=== PATIENT | female | born 1945 | race Hispanic/Latino ===

== ENCOUNTER → 2018-02-09 | Outpatient (CLI) | payer OTHER | END | disposition home or self-care (01) | LOC: RAH 10:38 | PROVIDERS: ATTEND Family Medicine | DX: Z12.31 Encounter for screening mammogram for malignant neoplasm of breast (principal) | CPT/HCPCS: 77067 ==

== ENCOUNTER → 2018-11-22 | Outpatient (CLI) | payer OTHER ==
[~2018-11-22] MED LIST: REGADENOSON 0.4 MG/5 ML PF SYG IVP SCH
== END | disposition home or self-care (01) ==
LOC: SHCH 08:08
PROVIDERS: ATTEND Internal Medicine Cardiovascular Disease
DX: I99.8 Other disorder of circulatory system (principal); I25.10 Atherosclerotic heart disease of native coronary artery without angina pectoris
CPT/HCPCS: 78452; 93017; 96374; A9500 ×2

== ENCOUNTER → 2019-03-06 | Outpatient (CLI) | payer OTHER | END | disposition home or self-care (01) | LOC: RAH 08:07 | PROVIDERS: ATTEND Family Medicine | DX: Z12.31 Encounter for screening mammogram for malignant neoplasm of breast (principal) | CPT/HCPCS: 77067 ==

== ENCOUNTER 2019-12-23 00:54 | Inpatient (IN) | payer OTHER ==
[2019-12-23] VITALS (22 sets, daily range): BP systolic 85–168; BP diastolic 35–81
[2019-12-23 01:10] LABS: BASOPHILS % (AUTO) 1.2 % (0.0-5.0); EOSINOPHILS % (AUTO) 6.3 % (0.0-8.0); HEMATOCRIT 37.1 % (36-48); LYMPHOCYTES % (AUTO) 34.1 % (21.0-51.0); MEAN CORPUSCULAR HEMOGLOBIN 26.4 pg (27.0-33.0); MEAN CORPUSCULAR HGB CONC 31.3 g/dL (32.0-36.0); MEAN CORPUSCULAR VOLUME 84.5 fL (79-99); NEUTROPHILS % (AUTO) 51.4 % (40.0-77.0); PLATELET COUNT (AUTO) 170 K/uL (130-400); RED BLOOD CELL COUNT(AUTO) 4.39 MIL/uL (4.00-5.50); RED CELL DISTRIBUTION WIDTH 14.1 % (11.0-15.5); WHITE BLOOD COUNT (AUTO) 4.3 K/uL (4.8-10.8)
[2019-12-23] MEDS ORDERED: NITROGLYCERIN 0.4 MG SL TAB SL ONE (01:17)
[2019-12-23 01:25] LABS: POTASSIUM 3.7 mmol/L (3.5-5.1)
[2019-12-23 01:26] LABS: INR 0.93 (0.85-1.15); PARTIAL THROMBOPLASTIN TIME 26.9 SEC (26.3-35.5); PROTHROMBIN TIME 10.1 SEC (9.6-11.6)
[2019-12-23 01:29] LABS: BILIRUBIN,TOTAL 0.3 mg/dL (0.2-1.0)
[2019-12-23] MEDS ORDERED: NITROGLYCERIN 1GM/1 INCH PACKET TD ONE (02:34)
[2019-12-23] MEDS ORDERED: IOHEXOL 350 MG/ML 100ML INFUS..BTL IV ONE ×3 (02:42→13:02)
[2019-12-23 02:45] LABS: APPEARANCE,URINE Clear (CLEAR); BILIRUBIN,URINE Negative (NEGATIVE); COLOR,URINE Yellow (YELLOW); GLUCOSE, URINE (UA) Negative (NEGATIVE); KETONES,URINE Negative (NEGATIVE); LEUKOCYTE ESTERASE ,URINE Negative (NEGATIVE); NITRATE,URINE Negative (NEGATIVE); OCCULT BLOOD,URINE Negative (NEGATIVE); PH,URINE 6.5 (5.0-8.0); PROTEIN,URINE Trace mg/dL (NEGATIVE); UROBILINOGEN,URINE 0.2 mg/dL (0.2-1.0)
[2019-12-23] MEDS ORDERED: HYDRALAZINE HCL 20 MG/ML VIAL ONE ×2 (03:42→10:54)
[2019-12-23] MEDS ORDERED: ASPIRIN 325 MG TABLET ONE (03:43)
[2019-12-23] MEDS ORDERED: NITROGLYCERIN 0.4 MG SL TAB SL PRN (04:45)
[2019-12-23 08:08] LABS: TROPONIN I 1.58 ng/mL (0.00-0.06)
[2019-12-23] MEDS ORDERED: METO25TA3 PO (08:16)
[2019-12-23] MEDS ORDERED: LOSA100T58 PO (08:16)
[2019-12-23] MEDS ORDERED: ROSU40TA21 PO (08:16)
[2019-12-23] MEDS ORDERED: ASPI-1197 PO (08:16)
[2019-12-23] MEDS ORDERED: ACETAMINOPHEN 325 MG TAB PO PRN ×2 (08:30)
[2019-12-23] MEDS ORDERED: DiphenhydrAMINE HCL 50 MG/ML VIAL IV PRN (08:30)
[2019-12-23] MEDS ORDERED: LACTULOSE 20 GM/30 ML UDCUP PO PRN (08:30)
[2019-12-23] MEDS ORDERED: POTASSIUM CHLORIDE 10% ELIXIR 20 MEQ/15 ML UDCUP PO PRN (08:30)
[2019-12-23] MEDS ORDERED: DEXTROSE 50%-WATER 50 ML DISP.SYRIN IV PRN ×2 (08:30→11:30)
[2019-12-23] MEDS ORDERED: GLUCAGON 1MG KIT 1 MG ML IM PRN ×2 (08:30→11:30)
[2019-12-23] MEDS ORDERED: MAG HYDROX/AL HYDROX/SIMETH ES 30 ML SUSP UDCUP PO PRN (08:30)
[2019-12-23] MEDS ORDERED: HYDRALAZINE HCL 20 MG/ML VIAL IV PRN (08:30)
[2019-12-23] MEDS ORDERED: GUAIFENESIN-DM 200/20 MG 10 ML PO PRN (08:30)
[2019-12-23] MEDS ORDERED: POTASSIUM CHLORIDE 20 MEQ ERTAB PO PRN (08:30)
[2019-12-23] MEDS ORDERED: LIDOCAINE HCL-MPF 1% 2ML VIAL IV PRN (08:30)
[2019-12-23] MEDS ORDERED: POTASSIUM CHLORIDE 20MEQ/100ML 100 ML IV PRN (08:30)
[2019-12-23] MEDS ORDERED: ASPIRIN 325 MG TABLET PO SCH (09:00)
[2019-12-23] MEDS ORDERED: FAMOTIDINE/PF 20 MG/2 ML VIAL IV SCH (09:00)
[2019-12-23] MEDS ORDERED: HEPARIN SODIUM 1000UNIT/ML 10ML VIAL ONE ×2 (10:02→13:02)
[2019-12-23] MEDS ORDERED: IOHEXOL-350 50ML VIAL IV ONE (10:02)
[2019-12-23] MEDS ORDERED: MIDAZOLAM HCL 1 MG/ML 2ML VIAL ONE (10:03)
[2019-12-23] MEDS ORDERED: LIDOCAINE HCL 2% 20ML ONE ×2 (10:03→13:03)
[2019-12-23] MEDS ORDERED: NITROGLYCERIN 2 MG/VIAL VIAL IV ONE ×2 (10:09→13:02)
[2019-12-23 11:11] LABS: TROPONIN I 2.59 ng/mL (0.00-0.06)
[2019-12-23] MEDS ORDERED: ONDANSETRON HCL 4 MG/2 ML VIAL ONE (11:24)
--- NOTE | 2019-12-23 11:55 | NUR ---
post received pt from canvas shop laborer, s/p [facility], pt awake and alert, pt c/o nausea and vomiting, states feels sick , seepost cath assessment, pt intructed to keep bedrest for 4 hours , right groin dressing dry and intact, pts sister at bedside.
[2019-12-23] MEDS ORDERED: MORPHINE SULFATE 2 MG/ML 1ML SYG ONE ×2 (12:16→13:54)
[2019-12-23] MEDS: ONDANSETRON HCL 4 MG/2 ML VIAL IVP SCH ×2 (12:23→22:13)
--- NOTE | 2019-12-23 12:24 | NUR ---
pain pt medicated with morphine/zofran for c/o upper back pain and c/o nausea and vomiting. will continue to monitor
[2019-12-23] MEDS ORDERED: MORPHINE SULFATE 2 MG/ML 1ML SYG IVP SCH (12:30)
[2019-12-23] MEDS ORDERED: ONDANSETRON HCL 4 MG/2 ML VIAL IVP SCH (12:30)
--- NOTE | 2019-12-23 12:45 | NUR ---
chest pain dr. quinteros informed that patient has been c/o chest pain radiating to left arm. he ordered ekg stat and further orders. will continue to monitor
--- NOTE | 2019-12-23 12:52 | NUR ---
ekg abnormal ekg reported to dr. quinteros he reviewed the ekg and will take patient back to tree tapping laborer for repeat heart cath. pts sister at bedside. tree tapping laborer staff aware
--- NOTE | 2019-12-23 13:10 | NUR ---
EKG PT TAKEN BACK TO WATCHMAKER APPRENTICE FOR LHC VIA BED, BY SARAH GIBSON RN
[2019-12-23] MEDS ORDERED: CLOPIDOGREL BISULFATE 300 MG TAB ONE (13:45)
[2019-12-23] MEDS ORDERED: HEPARIN 25000 UNITS/250 ML D5W 250 ML IV ONE (13:49)
[2019-12-23] MEDS ORDERED: ACETAMINOPHEN-CODEINE 300/30MG TAB PO PRN (14:00)
[2019-12-23] MEDS ORDERED: HEPARIN 25000 UNITS/250 ML D5W 250 ML IV SCH (14:00)
[2019-12-23] MEDS ORDERED: ONDANSETRON HCL 4 MG/2 ML VIAL IVP PRN ×2 (14:00)
[2019-12-23] MEDS ORDERED: TEMAZEPAM 30 MG CAP PO PRN (14:00)
[2019-12-23] MEDS ORDERED: MORPHINE SULFATE 5 MG/ML VIAL IVP PRN ×2 (14:30→15:00)
[2019-12-23 15:06] LABS: BASOPHILS % (AUTO) 0.2 % (0.0-5.0); EOSINOPHILS % (AUTO) 0.4 % (0.0-8.0); HEMATOCRIT 36.5 % (36-48); LYMPHOCYTES % (AUTO) 7.6 % (21.0-51.0); MEAN CORPUSCULAR HEMOGLOBIN 26.2 pg (27.0-33.0); MEAN CORPUSCULAR HGB CONC 31.5 g/dL (32.0-36.0); MEAN CORPUSCULAR VOLUME 83.1 fL (79-99); MONOCYTES % (AUTO) 2.8 % (3.0-13.0); NEUTROPHILS % (AUTO) 88.7 % (40.0-77.0); PLATELET COUNT (AUTO) 163 K/uL (130-400); RED BLOOD CELL COUNT(AUTO) 4.39 MIL/uL (4.00-5.50); RED CELL DISTRIBUTION WIDTH 14.2 % (11.0-15.5)
[2019-12-23 16:41] LABS: TROPONIN I 54.93 ng/mL (0.00-0.06)
--- NOTE | 2019-12-23 17:26 | NUR ---
Patient Received at this time from cathlab. Both groin sites assessed, soft and no hematoma. Patient made aware she is bedrest
[2019-12-23] MEDS: NITROGLYCERIN 1GM/1 INCH PACKET TD SCH ×2 (17:30→23:20)
--- NOTE | 2019-12-23 17:37 | NUR ---
Dr Arriaga notified of elevated CK and Troponin at this time
--- NOTE | 2019-12-23 20:28 | NUR ---
Notified Dr. Lee of rising hematoma forming at this time. Site is still soft to touch but looks raised. orders given, read back and followed
[2019-12-23] MEDS: INSULIN HUMULIN R 100 UNIT/ML 3ML SQ SCH (21:00)
[2019-12-23 21:58] LABS: TROPONIN I 253.5 ng/mL (0.00-0.06)
[2019-12-23] MEDS: ATORVASTATIN CALCIUM 20 MG TABLET PO SCH (22:12)
[2019-12-23] MEDS: METOPROLOL TARTRATE 25 MG TAB PO SCH (22:12)
[2019-12-23 23:27] LABS: TROPONIN I 270.43 ng/mL (0.00-0.06)
[2019-12-24] VITALS (18 sets, daily range): BP systolic 111–154; BP diastolic 49–78
[2019-12-24 03:41] LABS: HEMATOCRIT 33.7 % (36-48); MEAN CORPUSCULAR HEMOGLOBIN 26.6 pg (27.0-33.0); MEAN CORPUSCULAR HGB CONC 31.8 g/dL (32.0-36.0); MEAN CORPUSCULAR VOLUME 83.8 fL (79-99); PLATELET COUNT (AUTO) 171 K/uL (130-400); RED BLOOD CELL COUNT(AUTO) 4.02 MIL/uL (4.00-5.50); RED CELL DISTRIBUTION WIDTH 14.4 % (11.0-15.5); WHITE BLOOD COUNT (AUTO) 8.1 K/uL (4.8-10.8)
[2019-12-24 03:58] LABS: CREATININE 0.9 mg/dL (0.5-1.5); POTASSIUM 3.9 mmol/L (3.5-5.1)
[2019-12-24] MEDS: NITROGLYCERIN 1GM/1 INCH PACKET TD SCH ×4 (05:22→20:20)
[2019-12-24] MEDS: ONDANSETRON HCL 4 MG/2 ML VIAL IVP SCH ×3 (05:28→22:00)
[2019-12-24] MEDS: INSULIN HUMULIN R 100 UNIT/ML 3ML SQ SCH ×4 (06:50→20:46)
[2019-12-24] MEDS: METOPROLOL TARTRATE 25 MG TAB PO SCH ×2 (08:16→20:16)
[2019-12-24] MEDS: PANTOPRAZOLE SODIUM 40 MG TABLET.DR PO SCH (08:16)
[2019-12-24] MEDS: CLOPIDOGREL BISULFATE 75 MG TAB PO SCH (08:16)
[2019-12-24] MEDS: ASPIRIN 81MG TAB.CHEW PO SCH (08:17)
[2019-12-24] MEDS: ENOXAPARIN SODIUM 40 MG/0.4 ML SYRINGE SQ SCH (08:20)
--- NOTE | 2019-12-24 08:22 | NUR ---
Lovenox held because of left hematoma/healing.
--- NOTE | 2019-12-24 13:15 | NUR ---
patient transferred to room 228, report given to Ilya JIMENEZ. Patient transferred via wheelchair. patient states no pain or distress
--- NOTE | 2019-12-24 13:30 | NUR ---
TRANSFER FROM ICU RECEIVED PT FROM JOSE JIMENEZ, UP IN CHAIR, A&OX3, CALM COOPERATIVE AND DOES NOT APPEAR TO BE IN ANY DISTRESS. PT RESTING COMFORTABLY, CALL LIGHT WITHIN REACH, FAMILY AT BEDSIDE.
--- NOTE | 2019-12-24 13:35 | NUR ---
[id number] patient signed IM Letter, I faxed IM Letter to [phone] and placed in chart under consent tab
[2019-12-24] MEDS: ATORVASTATIN CALCIUM 20 MG TABLET PO SCH (20:16)
[2019-12-25 03:42] VITALS: BP 141/74
[2019-12-25] MEDS: ONDANSETRON HCL 4 MG/2 ML VIAL IVP SCH ×3 (05:46→22:00)
[2019-12-25] MEDS: INSULIN HUMULIN R 100 UNIT/ML 3ML SQ SCH ×4 (05:57→20:36)
[2019-12-25] MEDS: NITROGLYCERIN 1GM/1 INCH PACKET TD SCH (05:57)
[2019-12-25 07:24] VITALS: BP 134/64
--- NOTE | 2019-12-25 07:45 | NUR ---
PT IS RESTING AND SISTER AT BEDSIDE. NO COMPLAINTS OFFERED.
[2019-12-25] MEDS: CLOPIDOGREL BISULFATE 75 MG TAB PO SCH (08:38)
[2019-12-25] MEDS: LOSARTAN 50 MG TABLET PO SCH (08:39)
[2019-12-25] MEDS: PANTOPRAZOLE SODIUM 40 MG TABLET.DR PO SCH (08:40)
[2019-12-25] MEDS: ASPIRIN 81MG TAB.CHEW PO SCH (08:40)
[2019-12-25] MEDS: METOPROLOL TARTRATE 25 MG TAB PO SCH ×2 (08:42→20:42)
[2019-12-25] MEDS: ENOXAPARIN SODIUM 40 MG/0.4 ML SYRINGE SQ SCH (08:42)
[2019-12-25 11:46] VITALS: BP_SYST 11; BP_SYST 111; BP_DIAS 62
[2019-12-25 15:30] VITALS: BP 112/64
[2019-12-25 19:23] VITALS: BP 131/66
[2019-12-25] MEDS: ATORVASTATIN CALCIUM 20 MG TABLET PO SCH (20:42)
[2019-12-25 23:22] VITALS: BP 131/72
[2019-12-26 03:09] VITALS: BP 144/85
[2019-12-26 04:51] LABS: HEMATOCRIT 32.5 % (36-48); MEAN CORPUSCULAR HEMOGLOBIN 26.5 pg (27.0-33.0); MEAN CORPUSCULAR VOLUME 82.7 fL (79-99); PLATELET COUNT (AUTO) 148 K/uL (130-400); RED BLOOD CELL COUNT(AUTO) 3.93 MIL/uL (4.00-5.50); RED CELL DISTRIBUTION WIDTH 14.3 % (11.0-15.5)
[2019-12-26 05:21] LABS: ALBUMIN 3.2 g/dL (3.5-5.0); BILIRUBIN,TOTAL 0.6 mg/dL (0.2-1.0); CREATININE 0.8 mg/dL (0.5-1.5); POTASSIUM 3.5 mmol/L (3.5-5.1); TOTAL PROTEIN, SERUM 6.9 g/dL (6.0-8.3)
[2019-12-26] MEDS: ONDANSETRON HCL 4 MG/2 ML VIAL IVP SCH (06:00)
[2019-12-26] MEDS: INSULIN HUMULIN R 100 UNIT/ML 3ML SQ SCH ×2 (06:11→11:30)
[2019-12-26] MEDS ORDERED: CLOP75TA14 PO (07:47)
[2019-12-26] MEDS ORDERED: METO-391 PO (07:47)
[2019-12-26 07:49] VITALS: BP 143/75
--- NOTE | 2019-12-26 08:15 | NUR ---
AM ASSESSMENT PT SITTING IN CARDIAC RECLINER, WATCHING TV. VISITOR @ BEDSIDE. A/O X 3. NO SOB. NO DISTRESS NOTED. DENIES CHEST PAIN OR DISCOMFORT. DENIES PALPITATIONS. TELE:SR. BILATERAL GROINS DSG DRY & INTACT. PUNCTURES SITES SOFT, NON-TENDER. DSTAT TO RT GROIN. NO BLEEDING, NO HEMATOMA BILATERALLY. (+) STRONG PEDAL PULES BILATERALLY. BLE PINK & WARM TO TOUCH. DENIES N/V AND/OR DIARRHEA. UP W/ASSISTANCE. INSTRUCTED TO CALL FOR ASSISTANCE. CALL LOBO W/IN REACH.
[2019-12-26] MEDS: METOPROLOL TARTRATE 25 MG TAB PO SCH (09:55)
[2019-12-26] MEDS: ENOXAPARIN SODIUM 40 MG/0.4 ML SYRINGE SQ SCH (10:03)
[2019-12-26] MEDS: PANTOPRAZOLE SODIUM 40 MG TABLET.DR PO SCH (10:03)
[2019-12-26] MEDS: CLOPIDOGREL BISULFATE 75 MG TAB PO SCH (10:04)
[2019-12-26] MEDS: LOSARTAN 50 MG TABLET PO SCH (10:05)
[2019-12-26] MEDS: ASPIRIN 81MG TAB.CHEW PO SCH (10:06)
[2019-12-26 11:42] VITALS: BP 116/62
--- NOTE | 2019-12-26 13:37 | NUR ---
Medical Power of Produce Department Supervisor SW met with patient and sister and assisted in completing Medical Power of Produce Department Supervisor. Patient appointed her sister, Robyn Phillips, as Health Care Agent. First Alternate is sister, Naomi Thomas, . Second Alternate is niece, Johnna Phillips, . Copy placed in chart. Original and two copies given to patient. Patient's nurse made aware.
--- NOTE | 2019-12-26 13:45 | NUR ---
DISCHARGE VERBAL & WRITTEN DISCHARGE INSTRUCTIONS REVIEWED & GIVEN TO PT & FAMILY. QUESTIONS ENCOURAGED & CLARIFIED. PROPER CARE & ACTIVITY AFTER LHC W/STENT REVIEWED. NEW PRESCRIBED & DC'D MEDICATIONS REVIEWED. PT INFORMED PRESCRIPTION TRANSMITTED TO PHARMACY IN FILE. CABG INFORMATION GIVEN TO PT. PLAN FOR DR SARAH TO PERFORM CABG IN FUTURE. DSG TO BILATERAL GROIN REMOVED. STERI STRIPS APPLIED. TELE THA REMOVED. IV DC'D. PT & FAMILY TO GATHER PERSONAL BELONGINGS. WILL NOTIFY STAFF WHEN READY TO BE TAKEN TO PRIVATE VEHICLE.
--- NOTE | 2019-12-26 14:15 | NUR ---
DISCHARGE PT TAKEN TO PRIVATE VEHICLE VIA WC BY Ricardo FREED PCP. NO DISTRESS NOTED.
== END 2019-12-26 14:15 | disposition home or self-care (01) | DRG 246 ==
LOC: EDH 00:54 → EDHIP 03:50 → OBSVTOIN 03:50 → 2BH 16:09 → 2DH 12-24 11:29
PROVIDERS: ADMIT Internal Medicine Critical Care Medicine; ATTEND Internal Medicine Critical Care Medicine
PROC: 027034Z Dilation of Coronary Artery, One Artery with Drug-eluting Intraluminal Device, Percutaneous Approach (ICD-10-PCS; principal; 2019-12-23)
PROC: 4A023N7 Measurement of Cardiac Sampling and Pressure, Left Heart, Percutaneous Approach (ICD-10-PCS; 2019-12-23)
PROC: B2111ZZ Fluoroscopy of Multiple Coronary Arteries using Low Osmolar Contrast (ICD-10-PCS; 2019-12-23)
DX: I21.09 ST elevation (STEMI) myocardial infarction involving other coronary artery of anterior wall (principal); I50.41 Acute combined systolic (congestive) and diastolic (congestive) heart failure; I25.10 Atherosclerotic heart disease of native coronary artery without angina pectoris; I11.0 Hypertensive heart disease with heart failure; E78.5 Hyperlipidemia, unspecified; Z82.49 Family history of ischemic heart disease and other diseases of the circulatory system; Z79.82 Long term (current) use of aspirin; I25.82 Chronic total occlusion of coronary artery
CPT/HCPCS: 36415; 71045; 71275; 80048; 80053; 80061; 81003; 82550; 82948; 83874; 84484; 85025; 85027; 85347; 85610; 85730; 93005; 93306; 93356; 93454; 93458; 99156; 99157; 99291; C1760; C1769; C1887; C1894; C9600; G0378; J0360; J1644; J1650; J2250; J2405; J3490; Q9967

== ENCOUNTER 2020-01-17 10:00 | Inpatient (IN) | payer OTHER ==
[~2020-01-17] VITALS: Ht 167.6 cm; Wt 73.7 kg
[~2020-01-17 10:00] MED LIST changes: +ASPI-1197 PO; +CLOP75TA14 PO; +METO-391 PO; -REGADENOSON 0.4 MG/5 ML PF SYG IVP SCH; +ROSU40TA21 PO
[2020-01-31 12:51] VITALS: BP 186/97
[2020-02-03] VITALS (19 sets, daily range): BP systolic 18–188; BP diastolic 48–116
[2020-02-03] MEDS: CEFUROXIME SODIUM 1.5 GM VIAL IVP SCH ×2 (06:00→08:00)
[2020-02-03] MEDS ORDERED: EPINEPHRINE 10 MG in SODIUM CHLORIDE 0.9% 240 ML IV PRN (06:00)
[2020-02-03] MEDS ORDERED: AMINOCAPROIC ACID 15,000 MG in SODIUM CHLORIDE 0.9% 500ML 420 ML IV PRN (06:00)
[2020-02-03] MEDS ORDERED: NOREPINEPHRINE BITARTRATE 8 MG in DEXTROSE 5%-WATER 250 ML IV PRN (06:00)
[2020-02-03] MEDS ORDERED: PAPAVERINE HCL 30 MG/ML 2ML VIAL ONE (06:42)
[2020-02-03] MEDS ORDERED: CEFAZOLIN SODIUM 1 GM VIAL ONE (06:42)
[2020-02-03 06:52] LABS: BASOPHILS % (AUTO) 0.8 % (0.0-5.0); EOSINOPHILS % (AUTO) 3.5 % (0.0-8.0); HEMATOCRIT 34.4 % (36-48); LYMPHOCYTES % (AUTO) 14.7 % (21.0-51.0); MEAN CORPUSCULAR HEMOGLOBIN 26.2 pg (27.0-33.0); MEAN CORPUSCULAR HGB CONC 31.7 g/dL (32.0-36.0); MEAN CORPUSCULAR VOLUME 82.7 fL (79-99); NEUTROPHILS % (AUTO) 74.8 % (40.0-77.0); PLATELET COUNT (AUTO) 196 K/uL (130-400); RED BLOOD CELL COUNT(AUTO) 4.16 MIL/uL (4.00-5.50); RED CELL DISTRIBUTION WIDTH 14.6 % (11.0-15.5)
[2020-02-03] MEDS ORDERED: SODIUM CHLORIDE 0.9% 1000ML 1,000 ML IV ONE (06:57)
[2020-02-03] MEDS ORDERED: NITROGLYCERIN 50 MG/D5% WATER 1 BOT ONE (07:09)
--- NOTE | 2020-02-03 07:10 | NUR ---
POTENTIAL FOR INFECTION: CLIPPED ORDERED PER ZACH JEAN, FOLLOWED BY WIPING WITH ELIAS: 2: CHLORHEXIDINE GLUCONATE CLOTH PATIENTS PRE-OP SKIN PREP.
[2020-02-03 07:13] LABS: ALBUMIN 3.9 g/dL (3.5-5.0); BILIRUBIN,TOTAL 0.7 mg/dL (0.2-1.0); CREATININE 0.8 mg/dL (0.5-1.5); POTASSIUM 3.6 mmol/L (3.5-5.1); TOTAL PROTEIN, SERUM 7.5 g/dL (6.0-8.3)
[2020-02-03 07:25] LABS: INR 1.03 (0.85-1.15); PARTIAL THROMBOPLASTIN TIME 28.2 SEC (26.3-35.5); PROTHROMBIN TIME 11.1 SEC (9.6-11.6)
--- NOTE | 2020-02-03 07:28 | NUR ---
CIRCULATORY: DR. ALMAZAN NOTIFIED OF BP READINGS 184/116 AND 188/101, NO ORDERS GIVEN AT PRESENT TIME.
[2020-02-03] MEDS ORDERED: FENTANYL CITRATE PF 50 MCG/1 ML 20ML VIAL IJ ONE (07:36)
[2020-02-03] MEDS ORDERED: LIDOCAINE PF 2% 5ML ABBOJECT ONE (07:36)
[2020-02-03] MEDS ORDERED: PROTAMINE SULFATE 10 MG/ML 25ML VIAL IV ONE (07:36)
[2020-02-03] MEDS ORDERED: EPINEPHRINE 1 MG/ML AMPULE ONE (07:36)
[2020-02-03] MEDS ORDERED: ESMOLOL HCL 10 MG/ML 10 ML VIAL ONE (07:36)
[2020-02-03] MEDS ORDERED: HEPARIN SODIUM 1000UNIT/ML 10ML VIAL ONE (07:36)
[2020-02-03] MEDS ORDERED: AMINOCAPROIC ACID 250 MG/ML 20 ML VIAL IV ONE (07:36)
[2020-02-03] MEDS ORDERED: NOREPINEPHRINE BITARTRATE 1 MG/1 ML ML IV ONE (07:36)
[2020-02-03] MEDS ORDERED: SODIUM BICARB 50MEQ 50ML VIAL ONE ×4 (07:36→10:36)
[2020-02-03] MEDS ORDERED: ROCURONIUM 10MG/1ML SYR 10 MG/ML ML ONE (07:37)
[2020-02-03] MEDS ORDERED: MIDAZOLAM HCL 1 MG/ML 2ML VIAL ONE ×2 (07:37→07:39)
[2020-02-03] MEDS ORDERED: PROPOFOL 10 MG/ML 20ML VIAL IV ONE (07:37)
[2020-02-03] MEDS ORDERED: KETAMINE 50MG/ML SYRINGE 50 MG/ML DISP.SYRIN IV ONE (07:39)
[2020-02-03 08:02] LABS: PLATELET COUNT (AUTO) 196 K/uL (130-400); PLATELET FUNCTION ANALYSIS EPI 133 SEC (55-192)
[2020-02-03 08:03] LABS: HEMATOCRIT 34.4 % (36-48)
[2020-02-03 08:45] LABS: ABG BASE EXCESS -5.4 mmol/L (-2.0-3.0); ABG HCO3 20.6 mmol/L (21.0-28.0); ABG OXYGEN SATURATION 98.9 % (95.0-99.0); ABG PCO2 43 mmHg (32-45)
[2020-02-03 09:18] LABS: ABG BASE EXCESS -1.3 mmol/L (-2.0-3.0); ABG HCO3 23.2 mmol/L (21.0-28.0); ABG OXYGEN SATURATION 99.1 % (95.0-99.0); ABG PCO2 38 mmHg (32-45)
[2020-02-03] MEDS ORDERED: SODIUM CHLORIDE 0.9% 500ML 500 ML IV SCH (09:33)
[2020-02-03] MEDS ORDERED: NOREPINEPHRINE 4MG/NS 250ML 250 ML IV PRN (09:45)
[2020-02-03] MEDS ORDERED: POTASSIUM PHOS 15 mMOL+NS250ML 250 ML IV PRN (09:45)
[2020-02-03] MEDS ORDERED: ALBUMIN (HUMAN) 5% 250 ML IV PRN (09:45)
[2020-02-03] MEDS ORDERED: SODIUM CHLORIDE 0.9% 1000ML 1,000 ML IV SCH (09:45)
[2020-02-03] MEDS ORDERED: GLUCAGON 1MG KIT 1 MG ML IM PRN (09:45)
[2020-02-03] MEDS ORDERED: CALCIUM GLUCONATE 1 GM in SODIUM CHLORIDE 0.9% 50 ML IV PRN (09:45)
[2020-02-03] MEDS ORDERED: NITROGLYCERIN 50 MG/D5% WATER 250 BOT IV SCH (09:45)
[2020-02-03] MEDS ORDERED: AMINOCAPROIC ACID 15,000 MG in SODIUM CHLORIDE 0.9% 250 ML IV SCH (09:45)
[2020-02-03] MEDS ORDERED: MORPHINE SULFATE 4 MG/1ML SYG IV PRN (09:45)
[2020-02-03] MEDS ORDERED: EPINEPHRINE 10 MG in DEXTROSE 5%-WATER 250 ML IV PRN (09:45)
[2020-02-03] MEDS ORDERED: ACETAMINOPHEN 325 MG TAB PO PRN ×2 (09:45)
[2020-02-03] MEDS ORDERED: ACETAMINOPHEN 650 MG SUPPOSITORY RC PRN (09:45)
[2020-02-03] MEDS ORDERED: ONDANSETRON HCL 4 MG/2 ML VIAL IV PRN (09:45)
[2020-02-03] MEDS ORDERED: PROPOFOL 1000 MG/100 ML 100 ML IV PRN (09:45)
[2020-02-03] MEDS ORDERED: DEXTROSE 50%-WATER 50 ML DISP.SYRIN IV PRN (09:45)
[2020-02-03] MEDS ORDERED: SODIUM CHLORIDE 0.9% 10 ML VIAL IVP PRN (09:45)
[2020-02-03] MEDS ORDERED: MORPHINE SULFATE 2 MG/ML 1ML SYG IV PRN (09:45)
[2020-02-03] MEDS ORDERED: SODIUM CHLORIDE 0.9% 250 ML IV PRN (09:45)
[2020-02-03] MEDS ORDERED: INSULIN REGULAR, HUMAN 3ML 100 UNIT in SODIUM CHLORIDE 0.9% 99 ML IV SCH ×2 (10:16)
[2020-02-03 10:32] LABS: ABG BASE EXCESS -7.8 mmol/L (-2.0-3.0); ABG HCO3 17.6 mmol/L (21.0-28.0); ABG OXYGEN SATURATION 98.8 % (95.0-99.0); ABG PCO2 35 mmHg (32-45)
--- NOTE | 2020-02-03 11:00 | NUR ---
PT ARRIVES FROM OR. INTUBATED AND SEDATED. EPINEPHRINE DRIP AT 9ML/HR...LEVOPHED DRIP AT 9.4 ML/HR. AMIKAR AT 50ML HR. OGT IN PLACE. ET TUBE AT 21CM LIP. BBS PRESENT.
[2020-02-03 11:34] LABS: ABG BASE EXCESS -2.1 mmol/L (-2.0-3.0); ABG HCO3 22.4 mmol/L (21.0-28.0); ABG OXYGEN SATURATION 96.9 % (95.0-99.0); ABG PCO2 37 mmHg (32-45)
[2020-02-03 11:38] LABS: HEMATOCRIT 30.4 % (36-48); MEAN CORPUSCULAR HEMOGLOBIN 26.6 pg (27.0-33.0); MEAN CORPUSCULAR HGB CONC 32.2 g/dL (32.0-36.0); MEAN CORPUSCULAR VOLUME 82.6 fL (79-99); RED BLOOD CELL COUNT(AUTO) 3.68 MIL/uL (4.00-5.50); RED CELL DISTRIBUTION WIDTH 14.6 % (11.0-15.5); WHITE BLOOD COUNT (AUTO) 22.5 K/uL (4.8-10.8)
[2020-02-03] MEDS: POTASSIUM CHLORIDE 20MEQ/100ML 100 ML IV PRN ×5 (11:41→17:47)
[2020-02-03] MEDS: SODIUM BICARB 50MEQ 50ML VIAL IV PRN ×3 (11:44→15:33)
[2020-02-03 12:01] LABS: INR 1.22 (0.85-1.15); PARTIAL THROMBOPLASTIN TIME 26.2 SEC (26.3-35.5); PROTHROMBIN TIME 13.1 SEC (9.6-11.6)
[2020-02-03 12:38] LABS: CREATININE 0.9 mg/dL (0.5-1.5); MAGNESIUM 1.5 mg/dL (1.80-2.40); PHOSPHORUS 4.7 mg/dL (2.5-4.9); POTASSIUM 2.8 mmol/L (3.5-5.1)
[2020-02-03] MEDS: MAGNESIUM 2GM PREMIX 50ML 50 ML IV PRN ×2 (12:41→18:30)
[2020-02-03 12:53] LABS: ABG BASE EXCESS -0.5 mmol/L (-2.0-3.0); ABG HCO3 23.6 mmol/L (21.0-28.0); ABG OXYGEN SATURATION 97.8 % (95.0-99.0); ABG PCO2 37 mmHg (32-45)
--- NOTE | 2020-02-03 14:06 | NUR ---
PT SLOWLY BEGINNING TO RESPOND TO VOICE-OPENS EYES
[2020-02-03] MEDS: CEFAZOLIN SODIUM 1 GM VIAL IV SCH ×2 (14:28→23:11)
[2020-02-03] MEDS ORDERED: PROPOFOL 1000 MG/100 ML 100 ML IV SCH (15:15)
[2020-02-03 15:29] LABS: ABG BASE EXCESS -0.3 mmol/L (-2.0-3.0); ABG HCO3 24.3 mmol/L (21.0-28.0); ABG OXYGEN SATURATION 97.6 % (95.0-99.0); ABG PCO2 40 mmHg (32-45)
--- NOTE | 2020-02-03 15:39 | NUR ---
SPOKE WITH SISTER AND ADVISED HER THAT SHE WAS WAKING UP AND WILL CONTINUE TO ASSESS TO MAKE SURE THAT SHE WOULD BE ABLE TO BREATH ON HER OWN BEFORE WE EXTUBATED HER.
--- NOTE | 2020-02-03 16:43 | NUR ---
DHRUV PLAN PATIENT S/P CABGX3 02/02 IN CVR. MESFIN WILL CONTINUE TO FOLLOW. Addendum: 02/03/20 at 1644 by LI STOCKTON RN CM Amended: Links added.
[2020-02-03 16:55] LABS: ABG BASE EXCESS 1.6 mmol/L (-2.0-3.0); ABG HCO3 26.3 mmol/L (21.0-28.0); ABG OXYGEN SATURATION 97.8 % (95.0-99.0); ABG PCO2 42 mmHg (32-45)
--- NOTE | 2020-02-03 17:00 | NUR ---
PT WAS EXTUBATED AFTER PT'S ABG WERE OBTAINED AND PT WAS ABLE TO DO THE NIF AND VC PER PROTOCOL. PT WAS ADVISED OF NO TALKING FOR 2 HOURS AND AFTER TWO HOURS WOULD ASSESS FOR POSSIBLE EATING ICE CHIPS.
[2020-02-03 17:36] LABS: CREATININE 1.1 mg/dL (0.5-1.5); MAGNESIUM 1.8 mg/dL (1.80-2.40)
[2020-02-03] MEDS: TRAMADOL HCL 50 MG TABLET PO PRN (18:20)
[2020-02-03 20:30] LABS: ABG BASE EXCESS 1.2 mmol/L (-2.0-3.0); ABG HCO3 26.8 mmol/L (21.0-28.0); ABG OXYGEN SATURATION 96.1 % (95.0-99.0); ABG PCO2 46 mmHg (32-45)
[2020-02-03] MEDS: ATORVASTATIN CALCIUM 10 MG TABLET PO SCH (21:00)
[2020-02-03] MEDS: FAMOTIDINE/PF 20 MG/2 ML VIAL IV SCH (21:07)
[2020-02-03] MEDS: ATORVASTATIN CALCIUM 40 MG TABLET PO SCH (21:07)
[2020-02-04] VITALS (42 sets, daily range): BP systolic 107–173; BP diastolic 48–75
[2020-02-04 04:23] LABS: ABG BASE EXCESS -0.4 mmol/L (-2.0-3.0); ABG HCO3 23.3 mmol/L (21.0-28.0); ABG OXYGEN SATURATION 95.3 % (95.0-99.0); ABG PCO2 36 mmHg (32-45)
[2020-02-04 04:32] LABS: HEMATOCRIT 28.3 % (36-48); MEAN CORPUSCULAR HEMOGLOBIN 25.9 pg (27.0-33.0); MEAN CORPUSCULAR HGB CONC 31.4 g/dL (32.0-36.0); MEAN CORPUSCULAR VOLUME 82.5 fL (79-99); RED BLOOD CELL COUNT(AUTO) 3.43 MIL/uL (4.00-5.50); RED CELL DISTRIBUTION WIDTH 14.7 % (11.0-15.5); WHITE BLOOD COUNT (AUTO) 14.1 K/uL (4.8-10.8)
[2020-02-04 04:45] LABS: CREATININE 0.9 mg/dL (0.5-1.5); PHOSPHORUS 3.9 mg/dL (2.5-4.9); POTASSIUM 4.2 mmol/L (3.5-5.1)
[2020-02-04 04:49] LABS: INR 1.11 (0.85-1.15); PARTIAL THROMBOPLASTIN TIME 28.9 SEC (26.3-35.5); PROTHROMBIN TIME 11.9 SEC (9.6-11.6)
[2020-02-04] MEDS ORDERED: CALCIUM GLUCONATE 1 GM/10 ML VIAL IV ONE (05:01)
[2020-02-04] MEDS: CEFAZOLIN SODIUM 1 GM VIAL IV SCH (05:48)
[2020-02-04] MEDS: CEFUROXIME SODIUM 1.5 GM VIAL IVP SCH (06:00)
[2020-02-04 07:45] LABS: ABG BASE EXCESS 0.3 mmol/L (-2.0-3.0); ABG HCO3 25.1 mmol/L (21.0-28.0); ABG OXYGEN SATURATION 95.8 % (95.0-99.0); ABG PCO2 41 mmHg (32-45)
[2020-02-04] MEDS: FAMOTIDINE/PF 20 MG/2 ML VIAL IV SCH ×2 (09:47→20:44)
[2020-02-04] MEDS: ASPIRIN 325MG EC TAB 325 MG TABLET.DR PO SCH (09:47)
[2020-02-04] MEDS: FUROSEMIDE 10 MG/ML 2ML VIAL IV SCH ×2 (09:48→20:45)
--- NOTE | 2020-02-04 14:06 | NUR ---
DCP: HOME Sw met with pt who states she is currently staying with her sister who just became . Pt reports her and 2 kids have all and she has 2 sisters Latasha Phillips [phone] and Shobha Mnea [phone]. Prior to surgery, pt was independent of all ADLS, uses no DME, but has w/c, no in hoe care services. PCP is Kwame Faustin and she uses [facility] for rx. Plan is to dc to sister Latasha's home. CM to follow and assist as needed
--- NOTE | 2020-02-04 15:50 | NUR ---
UPDATED FACE SHEET WITH NEW NUMBER FOR SISTER LEO WHO WILL TRANSPORT HOME Addendum: 02/04/20 at 1552 by KENDRICK MARCUS RN CM Amended: Links added.
[2020-02-04] MEDS: ATORVASTATIN CALCIUM 10 MG TABLET PO SCH (20:35)
[2020-02-04] MEDS: ATORVASTATIN CALCIUM 40 MG TABLET PO SCH (20:45)
[2020-02-05] VITALS (21 sets, daily range): BP systolic 101–151; BP diastolic 48–83
[2020-02-05 04:19] LABS: HEMATOCRIT 25.9 % (36-48); MEAN CORPUSCULAR HEMOGLOBIN 25.6 pg (27.0-33.0); MEAN CORPUSCULAR HGB CONC 31.3 g/dL (32.0-36.0); MEAN CORPUSCULAR VOLUME 81.7 fL (79-99); RED BLOOD CELL COUNT(AUTO) 3.17 MIL/uL (4.00-5.50); RED CELL DISTRIBUTION WIDTH 14.7 % (11.0-15.5); WHITE BLOOD COUNT (AUTO) 9.1 K/uL (4.8-10.8)
[2020-02-05 04:33] LABS: CREATININE 0.9 mg/dL (0.5-1.5); POTASSIUM 3.7 mmol/L (3.5-5.1)
[2020-02-05] MEDS: POTASSIUM CHLORIDE 20MEQ/100ML 100 ML IV PRN (05:16)
--- NOTE | 2020-02-05 08:30 | NUR ---
SPOKE WITH SISTER JOLANTA AND WAS GIVEN AN UPDATE, PT WAS ABLE TO TALK TO SISTER ON THE PHONE.
[2020-02-05] MEDS: TRAMADOL HCL 50 MG TABLET PO PRN ×2 (08:48→16:19)
[2020-02-05] MEDS: LOSARTAN 50 MG TABLET PO SCH (08:50)
[2020-02-05] MEDS: ASPIRIN 325MG EC TAB 325 MG TABLET.DR PO SCH (08:51)
[2020-02-05] MEDS: FUROSEMIDE 20 MG TABLET PO SCH ×2 (08:51→15:43)
[2020-02-05] MEDS: METOPROLOL TARTRATE 25 MG TAB PO SCH ×2 (08:52→21:31)
[2020-02-05] MEDS: FAMOTIDINE/PF 20 MG/2 ML VIAL IV SCH ×2 (08:52→21:31)
--- NOTE | 2020-02-05 10:00 | NUR ---
PT WAS MEDICATED FOR PAIN AND DISCOMFORT AND PT HAD TO BE CONVINCED TO TAKE PAIN MED. PT WAS HAVING PROBLEMS TAKING DEEP BREATHS. PT WAS ADVISED THAT THE CHEST TUBES USUALLY MADE IT DIFFICULT TO TAKE DEEP BREATHS. PT AGREED TO TAKE PAIN MED AND BE ABLE TO BE SAT UP WHEN PT WOULD COME AROUND.
--- NOTE | 2020-02-05 11:45 | NUR ---
PT WAS SAT UP IN CHAIR BY PHYSICAL THERAPY AND HAD NO PROBLEM WITH V/S AND TOLERATED STANDING OUT OF BED.
[2020-02-05] MEDS: INSULIN HUMULIN R 100 UNIT/ML 3ML SQ SCH ×2 (16:25→21:00)
--- NOTE | 2020-02-05 17:15 | NUR ---
DR. SARAH HERE AND ORDERS NOTED.
--- NOTE | 2020-02-05 17:45 | NUR ---
PT HAS CHEST TUBES X2, ART LINE AND CORDIS REMOVED. PT HAD BEEN MEDICATED PRIOR TO REMOVING CHEST TUBES AND LINES.
[2020-02-05] MEDS: ATORVASTATIN CALCIUM 40 MG TABLET PO SCH (21:31)
[2020-02-06 01:00] VITALS: BP 112/53
[2020-02-06 03:00] VITALS: BP 108/60
[2020-02-06 04:08] LABS: HEMATOCRIT 25.1 % (36-48); MEAN CORPUSCULAR HEMOGLOBIN 26.4 pg (27.0-33.0); MEAN CORPUSCULAR HGB CONC 32.3 g/dL (32.0-36.0); MEAN CORPUSCULAR VOLUME 81.8 fL (79-99); RED BLOOD CELL COUNT(AUTO) 3.07 MIL/uL (4.00-5.50); RED CELL DISTRIBUTION WIDTH 14.6 % (11.0-15.5); WHITE BLOOD COUNT (AUTO) 8.9 K/uL (4.8-10.8)
[2020-02-06 04:26] LABS: POTASSIUM 3.8 mmol/L (3.5-5.1)
[2020-02-06] MEDS: INSULIN HUMULIN R 100 UNIT/ML 3ML SQ SCH ×4 (07:29→20:42)
[2020-02-06 08:00] VITALS: BP 120/58
[2020-02-06] MEDS: FAMOTIDINE 20MG TAB 20 MG TAB PO SCH ×2 (09:27→20:41)
[2020-02-06] MEDS: ASPIRIN 325MG EC TAB 325 MG TABLET.DR PO SCH (09:27)
[2020-02-06] MEDS: METOPROLOL TARTRATE 25 MG TAB PO SCH ×2 (09:28→20:41)
[2020-02-06] MEDS: LOSARTAN 50 MG TABLET PO SCH (09:28)
[2020-02-06] MEDS: FUROSEMIDE 20 MG TABLET PO SCH ×2 (09:28→18:05)
[2020-02-06] MEDS: ENOXAPARIN SODIUM 30 MG/0.3 ML SQ SCH (09:30)
[2020-02-06 12:00] VITALS: BP 92/40
[2020-02-06 16:00] VITALS: BP 136/64
[2020-02-06 20:12] VITALS: BP 127/66
[2020-02-06] MEDS: ATORVASTATIN CALCIUM 40 MG TABLET PO SCH (20:41)
[2020-02-07] VITALS (7 sets, daily range): BP systolic 118–155; BP diastolic 65–80
[2020-02-07] MEDS: TRAMADOL HCL 50 MG TABLET PO PRN (01:49)
[2020-02-07 04:00] LABS: HEMATOCRIT 26.2 % (36-48); MEAN CORPUSCULAR HEMOGLOBIN 25.7 pg (27.0-33.0); MEAN CORPUSCULAR HGB CONC 32.1 g/dL (32.0-36.0); MEAN CORPUSCULAR VOLUME 80.1 fL (79-99); RED BLOOD CELL COUNT(AUTO) 3.27 MIL/uL (4.00-5.50); RED CELL DISTRIBUTION WIDTH 14.4 % (11.0-15.5); WHITE BLOOD COUNT (AUTO) 6.7 K/uL (4.8-10.8)
[2020-02-07 04:12] LABS: CREATININE 0.7 mg/dL (0.5-1.5)
[2020-02-07] MEDS: INSULIN HUMULIN R 100 UNIT/ML 3ML SQ SCH ×4 (05:34→21:00)
[2020-02-07] MEDS: POTASSIUM CHLORIDE 20MEQ/100ML 100 ML IV PRN (05:53)
[2020-02-07] MEDS: MAGNESIUM 2GM PREMIX 50ML 50 ML IV PRN (06:26)
[2020-02-07] MEDS: FUROSEMIDE 20 MG TABLET PO SCH ×2 (08:01→16:53)
[2020-02-07] MEDS: ASPIRIN 325MG EC TAB 325 MG TABLET.DR PO SCH (08:01)
[2020-02-07] MEDS: METOPROLOL TARTRATE 25 MG TAB PO SCH ×2 (08:01→21:11)
[2020-02-07] MEDS: FAMOTIDINE 20MG TAB 20 MG TAB PO SCH ×2 (08:01→21:11)
[2020-02-07] MEDS: LOSARTAN 50 MG TABLET PO SCH (08:02)
[2020-02-07] MEDS: POTASSIUM CHLORIDE 10% ELIXIR 20 MEQ/15 ML UDCUP PO PRN ×4 (08:03→14:23)
[2020-02-07] MEDS: ENOXAPARIN SODIUM 30 MG/0.3 ML SQ SCH (08:03)
[2020-02-07] MEDS ORDERED: LACTULOSE 20 GM/30 ML UDCUP PO PRN (09:30)
[2020-02-07] MEDS: ATORVASTATIN CALCIUM 40 MG TABLET PO SCH (21:11)
[2020-02-07] MEDS: POTASSIUM CHLORIDE 20 MEQ ERTAB PO PRN (22:50)
[2020-02-08] MEDS: POTASSIUM CHLORIDE 20 MEQ ERTAB PO PRN ×3 (01:02→08:43)
[2020-02-08 03:58] VITALS: BP 145/77
--- NOTE | 2020-02-08 04:17 | NUR ---
DR SARAH ROUNDED ON PATIENT. PER DR SARAH PATIENT CAN DISCHARGE 02/07. WILL NOTIFY CARDIOLOGY.
[2020-02-08 05:13] LABS: CREATININE 0.8 mg/dL (0.5-1.5); MAGNESIUM 1.9 mg/dL (1.80-2.40); POTASSIUM 3.7 mmol/L (3.5-5.1)
[2020-02-08] MEDS: TRAMADOL HCL 50 MG TABLET PO PRN (05:20)
[2020-02-08] MEDS: INSULIN HUMULIN R 100 UNIT/ML 3ML SQ SCH ×2 (06:37→11:11)
[2020-02-08] MEDS: MAGNESIUM 2GM PREMIX 50ML 50 ML IV PRN (06:41)
[2020-02-08] MEDS: LOSARTAN 50 MG TABLET PO SCH (08:36)
[2020-02-08] MEDS: METOPROLOL TARTRATE 25 MG TAB PO SCH (08:36)
[2020-02-08] MEDS: ASPIRIN 325MG EC TAB 325 MG TABLET.DR PO SCH (08:38)
[2020-02-08] MEDS: FAMOTIDINE 20MG TAB 20 MG TAB PO SCH (08:41)
[2020-02-08] MEDS: ENOXAPARIN SODIUM 30 MG/0.3 ML SQ SCH (08:41)
[2020-02-08] MEDS: FUROSEMIDE 20 MG TABLET PO SCH (08:42)
[2020-02-08] MEDS ORDERED: ATOR40TA69 PO (08:55)
[2020-02-08] MEDS ORDERED: FURO20TA6 PO (08:55)
[2020-02-08] MEDS ORDERED: ASPI-891 PO (08:55)
[2020-02-08] MEDS ORDERED: TRAM50TA4 PO (08:55)
[2020-02-08] MEDS ORDERED: LOSA50TA2 PO (08:55)
[2020-02-08] MEDS ORDERED: METO25 PO (08:55)
[2020-02-08 09:01] VITALS: BP 140/76
[2020-02-08 11:13] VITALS: BP 129/74
--- NOTE | 2020-02-08 11:45 | NUR ---
DISCHARGE VERBAL & WRITTEN DISCHARGE INSTRUCTIONS REVIEWED & GIVEN TO PT. QUESTIONS ENCOURAGED & CLARIFIED. PROPER CARE & ACTIVITY AFTER CABG REVIEWED. STERNAL PRECAUTIONS & IMPORTANCE OF IS REINFORCED. NEW PRESCRIBED MEDICATIONS REVIEWED. PRESCRIPTION GIVEN TO PT. SIGNED COPY OF PRESCRIPTION PLACED IN CHART. PT INFORMED PRESCRIPTION FOR TRAMADOL CALLED TO PHARMACY ON FILE. TELE THA REMOVED EARLIER. IV DC'D. CHEST TUBE SUTURE X 2 REMOVED. STERI STRIPS APPLIED TO PUNCTURE SITES. FAMILY TO BRING PT CLOTHING & PERSONAL BELONGINGS TO GO HOME. SECURITY @ ENTRANCE TO NOTIFY STAFF WHEN PT'S FAMILY ARRIVES TO HOSPITAL.
--- NOTE | 2020-02-08 13:05 | NUR ---
DISCHARGE FAMILY HERE TO TAKE PT HOME. PT TAKEN TO PRIVATE VEHICLE VIA WC BY MYSELF, Franky POWERS RN.
== END 2020-02-08 13:05 | disposition home or self-care (01) | DRG 235 ==
LOC: EDSTATUS 10:00 → PAH.CVR 02-03 05:35 → DAHIP 02-04 06:20 → 4DH 02-06 18:36
PROVIDERS: ADMIT Thoracic Surgery (Cardiothoracic Vascular Surgery); ATTEND Thoracic Surgery (Cardiothoracic Vascular Surgery)
PROC: 02100Z9 Bypass Coronary Artery, One Artery from Left Internal Mammary, Open Approach (ICD-10-PCS; principal; 2020-02-03 07:41)
PROC: 021209W Bypass Coronary Artery, Three Arteries from Aorta with Autologous Venous Tissue, Open Approach (ICD-10-PCS; 2020-02-03 07:41)
PROC: 06BQ4ZZ Excision of Left Saphenous Vein, Percutaneous Endoscopic Approach (ICD-10-PCS; 2020-02-03 07:41)
DX: I25.10 Atherosclerotic heart disease of native coronary artery without angina pectoris (principal); I50.41 Acute combined systolic (congestive) and diastolic (congestive) heart failure; E78.00 Pure hypercholesterolemia, unspecified; E87.70 Fluid overload, unspecified; E78.5 Hyperlipidemia, unspecified; I10 Essential (primary) hypertension; Z82.49 Family history of ischemic heart disease and other diseases of the circulatory system; Z79.899 Other long term (current) drug therapy; Z79.82 Long term (current) use of aspirin; Z95.5 Presence of coronary angioplasty implant and graft; I11.0 Hypertensive heart disease with heart failure
CPT/HCPCS: 36415; 71045; 71046; 80048; 80053; 82330; 82435; 82803; 82947; 82948; 83036; 83605; 83735; 84100; 84132; 84295; 85018; 85025; 85027; 85347; 85576; 85610; 85730; 86850; 86900; 86901; 86922; 93005; 93880; 94002; 94010; 94150; 97039; A4357; A7048; G0378; J0171; J0610; J0690; J0697; J1644; J1650; J1815; J1940; J2001; J2250; J2405; J2440; J2704; J2720; J3010; J3475; J3480; J3490; J7030; J7040; J7050; J7060

== ENCOUNTER → 2020-01-22 | Outpatient (CLI) | payer OTHER | END | disposition home or self-care (01) | LOC: RAH 08:55 | PROVIDERS: ATTEND Internal Medicine Cardiovascular Disease | DX: I08.8 Other rheumatic multiple valve diseases (principal); I21.02 ST elevation (STEMI) myocardial infarction involving left anterior descending coronary artery; E78.5 Hyperlipidemia, unspecified | CPT/HCPCS: 93306; 93356 ==

== ENCOUNTER 2020-11-12 09:24 | Day surgery (SDC) | payer OTHER ==
[2020-11-10 09:49] LABS: BASOPHILS % (AUTO) 1.2 % (0.0-5.0); EOSINOPHILS % (AUTO) 6.8 % (0.0-8.0); HEMATOCRIT 40.9 % (36-48); MEAN CORPUSCULAR HEMOGLOBIN 25.7 pg (27.0-33.0); MEAN CORPUSCULAR HGB CONC 31.3 g/dL (32.0-36.0); MONOCYTES % (AUTO) 7.4 % (3.0-13.0); NEUTROPHILS % (AUTO) 60.4 % (40.0-77.0); PLATELET COUNT (AUTO) 195 K/uL (130-400); RED BLOOD CELL COUNT(AUTO) 4.99 MIL/uL (4.00-5.50); RED CELL DISTRIBUTION WIDTH 15.7 % (11.0-15.5); WHITE BLOOD COUNT (AUTO) 5.1 K/uL (4.8-10.8)
[2020-11-10 09:52] LABS: CREATININE 1.3 mg/dL (0.5-1.5); POTASSIUM 3.9 mmol/L (3.5-5.1)
[2020-11-10 09:55] LABS: INR 1.23 (0.85-1.15); PROTHROMBIN TIME 13.2 SEC (9.6-11.6)
[2020-11-10 09:56] LABS: PARTIAL THROMBOPLASTIN TIME 32.7 SEC (26.3-35.5)
[2020-11-10 12:50] VITALS: BP 125/67
[2020-11-12] VITALS (9 sets, daily range): BP systolic 107–153; BP diastolic 49–98
[~2020-11-12] VITALS: Ht 168.9 cm; Wt 70.7 kg
[~2020-11-12 09:24] MED LIST changes: +0.9%NACL 1000ML 1,000 ML IV SCH; +APIX5TAB PO; -ASPI-1197 PO; +ASPI-891 PO; +CHOL200074 PO; -CLOP75TA14 PO; +FERR-82 PO; +HYDR12.54 PO; +LOSA50TA64 PO; -METO-391 PO; +METO-408 PO
[2020-11-12] MEDS ORDERED: LIDOCAINE HCL 400MG/20ML VIAL ONE (10:42)
[2020-11-12] MEDS ORDERED: MIDAZOLAM HCL 1 MG/ML 2ML VIAL ONE ×2 (10:42→13:16)
[2020-11-12] MEDS ORDERED: MEPERIDINE-PF 25 MG/ML SYG ONE ×2 (10:42→13:16)
[2020-11-12] MEDS ORDERED: HEPARIN 10,000 UNIT/10ML (1,000 UNIT/ML) VIAL ONE (10:42)
[2020-11-12] MEDS ORDERED: ISOPROTERENOL HCL 0.2 MG/ML AMP/VIAL/BAG ONE (10:44)
== END 2020-11-12 19:00 ==
LOC: DAH 09:24
PROVIDERS: ATTEND Internal Medicine Cardiovascular Disease
DX: I48.3 Typical atrial flutter (principal); I25.2 Old myocardial infarction; I25.10 Atherosclerotic heart disease of native coronary artery without angina pectoris; E78.5 Hyperlipidemia, unspecified; Z79.01 Long term (current) use of anticoagulants; Z79.899 Other long term (current) drug therapy
CPT/HCPCS: 36415; 80048; 85025; 85610; 85730; 93005; 93613; 93621; 93653; A4215; A4216; A4221; A4222; A4223 ×3; A4606; A4649 ×2; A4663; C1730; C1732; C1893; C1894 ×2; J1644 ×2; J2175 ×2; J2250 ×2; J3490; 99156; 99157

== ENCOUNTER → 2020-12-25 | Outpatient (CLI) | payer OTHER ==
[~2020-12-25] MED LIST changes: -0.9%NACL 1000ML 1,000 ML IV SCH
== END | disposition home or self-care (01) ==
LOC: RAH 10:42
PROVIDERS: ATTEND Family Medicine
DX: Z12.31 Encounter for screening mammogram for malignant neoplasm of breast (principal)
CPT/HCPCS: 77067

== ENCOUNTER → 2022-12-16 | Outpatient (CLI) | payer OTHER ==
[2022-12-16 13:16] LABS: CHOLESTEROL 114 mg/dL (<200); HDL CHOLESTEROL 58 mg/dL (35-85); LDL DIRECT 40 mg/dL (0-99); TRIGLYCERIDES 58 mg/dL (30-200)
== END | disposition home or self-care (01) ==
LOC: LAB 08:35
PROVIDERS: ATTEND Internal Medicine Cardiovascular Disease
DX: I25.10 Atherosclerotic heart disease of native coronary artery without angina pectoris (principal)
CPT/HCPCS: 36415; 80061

== ENCOUNTER → 2023-01-02 | Outpatient (CLI) | payer OTHER | END | disposition home or self-care (01) | LOC: RAH 10:05 | PROVIDERS: ATTEND Family Medicine | DX: Z12.31 Encounter for screening mammogram for malignant neoplasm of breast (principal) | CPT/HCPCS: 77067 ==

== ENCOUNTER 2023-05-20 08:03 | Inpatient (IN) | payer OTHER ==
[~2023-05-20] VITALS: Ht 162.6 cm; Wt 67.7 kg
[2023-05-20] MEDS ORDERED: 0.9%NACL 1000ML 1,000 ML IV ONE (08:30)
[2023-05-20 08:47] LABS: BASOPHILS # (AUTO) 0.02 K/uL (0.00-0.20); BASOPHILS % (AUTO) 0.4 % (0.0-5.0); EOSINOPHILS # (AUTO) 0.07 K/uL (0.00-0.70); EOSINOPHILS % (AUTO) 1.2 % (0.0-8.0); HEMATOCRIT 33.4 % (36-48); IMMATURE GRANULOCYTE ABSOLUTE 0.02 K/uL (0-1); LYMPHOCYTES # (AUTO) 0.7 K/uL (1.0-4.8); LYMPHOCYTES % (AUTO) 11.8 % (21.0-51.0); MEAN CORPUSCULAR HGB CONC 32.3 g/dL (32.0-36.0); MEAN CORPUSCULAR VOLUME 83.5 fL (79-99); MONOCYTES # (AUTO) 0.3 K/uL (0.1-1.0); NEUTROPHILS # (AUTO) 4.6 K/uL (1.8-7.7); NEUTROPHILS % (AUTO) 80.2 % (40.0-77.0); PLATELET COUNT (AUTO) 141 K/uL (130-400); RED CELL DISTRIBUTION WIDTH 14.6 % (11.0-15.5); WHITE BLOOD COUNT (AUTO) 5.7 K/uL (4.8-10.8)
[2023-05-20 09:15] LABS: ALBUMIN 3.5 g/dL (3.5-5.0); BILIRUBIN,TOTAL 1.2 mg/dL (0.2-1.0); POTASSIUM 3.4 mmol/L (3.5-5.1); TOTAL PROTEIN, SERUM 6.8 g/dL (6.0-8.3)
[2023-05-20 09:35] LABS: B-TYPE NATRIURETIC PEPTIDE 1020 pg/mL (0-100)
[2023-05-20 09:46] LABS: INR 1.08 (0.85-1.15); PROTHROMBIN TIME 12.5 SEC (9.6-11.6)
[2023-05-20 09:47] LABS: PARTIAL THROMBOPLASTIN TIME 27.5 SEC (26.3-35.5)
[2023-05-20] MEDS ORDERED: DiphenhydrAMINE HCL 50 MG/ML VIAL IV PRN (11:00)
[2023-05-20] MEDS ORDERED: HYDRALAZINE 25MG TABLET PO PRN (11:00)
[2023-05-20] MEDS ORDERED: MAGNESIUM 2GM PREMIX 50ML 50 ML IV PRN (11:00)
[2023-05-20] MEDS ORDERED: GUAIFENESIN-DM 200/20 MG 10 ML PO PRN (11:00)
[2023-05-20] MEDS ORDERED: ACETAMINOPHEN 325 MG TAB PO PRN ×2 (11:00)
[2023-05-20] MEDS ORDERED: LOPERAMIDE HCL 2 MG CAP PO PRN (11:00)
[2023-05-20] MEDS ORDERED: BENZOCAINE/MENTH/CETYLPYRD CL 1 EACH LOZENGE MM PRN (11:00)
[2023-05-20] MEDS ORDERED: DIPHENHYDRAMINE HCL 25 MG CAPSULE PO PRN (11:00)
[2023-05-20] MEDS ORDERED: LACTULOSE 20 GM/30 ML UDCUP PO PRN (11:00)
[2023-05-20] MEDS ORDERED: DOCUSATE SODIUM 100 MG CAP PO PRN (11:00)
[2023-05-20] MEDS ORDERED: ALPRAZOLAM 0.5 MG TABLET PO PRN (11:00)
[2023-05-20] MEDS ORDERED: ALBUTEROL 0.083% 2.5 MG/3 ML INH IH PRN (11:00)
[2023-05-20] MEDS ORDERED: GLUCAGON 1MG KIT 1 MG ML IM PRN (11:00)
[2023-05-20] MEDS ORDERED: MAG/ALUM/SIMETH 30 ML UDCUP PO PRN (11:00)
[2023-05-20] MEDS ORDERED: POTASSIUM CHLORIDE 10% ELIXIR 20 MEQ/15 ML UDCUP PO PRN (11:00)
[2023-05-20] MEDS ORDERED: DEXTROSE 50%-WATER 50 ML DISP.SYRIN IV PRN (11:00)
[2023-05-20] MEDS ORDERED: POTASSIUM CHLORIDE 20MEQ/100ML 100 ML IV PRN ×2 (11:00)
[2023-05-20] MEDS ORDERED: ARTIFICAL TEARS SOL 15 ML OP PRN (11:00)
[2023-05-20] MEDS ORDERED: ONDANSETRON 4MG INJ IV PRN (11:00)
[2023-05-20] MEDS ORDERED: NITROGLYCERIN 0.4 MG SL TAB SL PRN (11:00)
[2023-05-20] MEDS ORDERED: GUAIFENESIN SUGAR-FREE 100 MG/5 ML UDCUP PO PRN (11:00)
[2023-05-20] MEDS ORDERED: POLYETHYLENE GLYCOL 3350 17 GM POWD.PACK PO PRN (11:00)
[2023-05-20] MEDS ORDERED: ZOLPIDEM TARTRATE 5 MG TAB PO PRN (11:00)
[2023-05-20] MEDS: KCL 20 MEQ ERTAB PO PRN ×2 (11:26→12:58)
[2023-05-20 11:40] LABS: APPEARANCE,URINE CLEAR (CLEAR); BILIRUBIN,URINE NEGATIVE (NEGATIVE); COLOR,URINE LIGHT-YELLOW (YELLOW); GLUCOSE, URINE (UA) NEGATIVE (NEGATIVE); KETONES,URINE 20 mg/dL (NEGATIVE); LEUKOCYTE ESTERASE ,URINE NEGATIVE Leu/uL (NEGATIVE); NITRATE,URINE NEGATIVE (NEGATIVE); PROTEIN,URINE 50 mg/dL (NEGATIVE); UROBILINOGEN,URINE 0.2 mg/dL (0.2-1.0)
[2023-05-20 11:43] LABS: ADD UA MICROSCOPIC YES
[2023-05-20 12:03] LABS: BACTERIA,URINE RARE /HPF (None Seen); MUCUS,URINE RARE LPF (None Seen); SQUAMOUS EPITHELIAL CELL,UR RARE /HPF (0-2)
[2023-05-20] MEDS ORDERED: GADOTERATE MEGLUMINE 5 MMOL/10 ML VIAL IV ONE (12:16)
[2023-05-20] MEDS ORDERED: IRON GLUCONATE PO (13:05)
[2023-05-20] MEDS ORDERED: EZET10TA48 PO (13:05)
[2023-05-20] MEDS ORDERED: LOSA50TA64 PO (13:05)
[2023-05-20] MEDS ORDERED: AEC81 PO (13:05)
[2023-05-20] MEDS ORDERED: IRON 27MG (13:05)
[2023-05-20 18:40] VITALS: BP 166/81; PULSE 70; RESP 17
[2023-05-20 18:48] VITALS: O2SAT 100
[2023-05-20 20:00] VITALS: BP 162/87; PULSE 73; RESP 18
[2023-05-20] MEDS ORDERED: NON-FORMULARY MEDICATION 1 EACH (Rosuvastatin Calcium 40 MG) PO SCH (21:00)
[2023-05-20] MEDS ORDERED: ENOXAPARIN SODIUM 100 MG/1 ML SQ STA (21:27)
[2023-05-20] MEDS ORDERED: CLOPIDOGREL 75MG TAB PO SCH (21:30)
[2023-05-20] MEDS: ATORVASTATIN 40 MG TABLET PO SCH (21:42)
[2023-05-20] MEDS: FAMOTIDINE 20MG TAB PO SCH (21:42)
[2023-05-21] VITALS: BP 164/94; PULSE 72; RESP 18
[2023-05-21] MEDS ORDERED: ASPIRIN 325MG EC TAB PO SCH (09:00)
[2023-05-21] MEDS ORDERED: CLOPIDOGREL 75MG TAB PO SCH (09:00)
[2023-05-21] MEDS ORDERED: IOHEXOL-350 75 ML VIAL IV ONE (12:18)
[2023-05-21] MEDS ORDERED: IOHEXOL-350 50ML VIAL IV ONE (12:19)
[2023-05-21] MEDS: CLOPIDOGREL 75MG TAB PO SCH (20:00)
[2023-05-21] MEDS: ATORVASTATIN 40 MG TABLET PO SCH (21:00)
[2023-05-21] MEDS: FAMOTIDINE 20MG TAB PO SCH (21:00)
[2023-05-22] VITALS (7 sets, daily range): BP systolic 128–162; BP diastolic 71–92; PULSE 72–83; RESP 17–18; O2SAT 99
[2023-05-22 00:35] LABS: ALBUMIN 3.1 g/dL (3.5-5.0); BILIRUBIN,TOTAL 1.4 mg/dL (0.2-1.0); HEMOGLOBIN A1C 5.8 % (4.0-6.0); POTASSIUM 3.6 mmol/L (3.5-5.1); TOTAL PROTEIN, SERUM 6.4 g/dL (6.0-8.3)
[2023-05-22] MEDS ORDERED: HYDRALAZINE 20MG/ML VIAL IV PRN (05:30)
[2023-05-22] MEDS: ASPIRIN 81 MG EC TAB PO SCH ×2 (09:00→09:22)
[2023-05-22] MEDS: ENOXAPARIN SODIUM 40 MG/0.4 ML SYRINGE SQ SCH ×2 (09:00→09:24)
[2023-05-22] MEDS: FAMOTIDINE 20MG TAB PO SCH ×2 (09:23→20:51)
[2023-05-22 10:40] LABS: POTASSIUM 3.7 mmol/L (3.5-5.1)
[2023-05-22 12:06] LABS: HEMATOCRIT 37.2 % (36-48); MEAN CORPUSCULAR HEMOGLOBIN 26.6 pg (27.0-33.0); MEAN CORPUSCULAR HGB CONC 31.7 g/dL (32.0-36.0); RED BLOOD CELL COUNT(AUTO) 4.43 MIL/uL (4.00-5.50); RED CELL DISTRIBUTION WIDTH 14.6 % (11.0-15.5); WHITE BLOOD COUNT (AUTO) 5.5 K/uL (4.8-10.8)
[2023-05-22 12:39] LABS: HEMOGLOBIN A1C 5.9 % (4.0-6.0)
[2023-05-22 13:44] LABS: CHOLESTEROL 90 mg/dL (<200); HDL CHOLESTEROL 42 mg/dL (35-85); LDL DIRECT 35 mg/dL (0-99); TRIGLYCERIDES 62 mg/dL (30-200)
[2023-05-22] MEDS: ATORVASTATIN 40 MG TABLET PO SCH (20:51)
[2023-05-22] MEDS: CLOPIDOGREL 75MG TAB PO SCH (20:51)
[2023-05-23 00:15] VITALS: BP 164/86; PULSE 86; RESP 18
[2023-05-23 03:36] VITALS: BP 145/86; PULSE 79; RESP 20
[2023-05-23 05:46] LABS: HEMATOCRIT 36.8 % (36-48); MEAN CORPUSCULAR HEMOGLOBIN 26.8 pg (27.0-33.0); MEAN CORPUSCULAR HGB CONC 32.6 g/dL (32.0-36.0); MEAN CORPUSCULAR VOLUME 82.3 fL (79-99); RED BLOOD CELL COUNT(AUTO) 4.47 MIL/uL (4.00-5.50); RED CELL DISTRIBUTION WIDTH 14.6 % (11.0-15.5); WHITE BLOOD COUNT (AUTO) 5.1 K/uL (4.8-10.8)
[2023-05-23 05:56] LABS: CREATININE 0.9 mg/dL (0.5-1.5); POTASSIUM 3.7 mmol/L (3.5-5.1)
[2023-05-23 06:05] LABS: INR 1.04 (0.85-1.15)
[2023-05-23 06:07] LABS: PARTIAL THROMBOPLASTIN TIME 30.7 SEC (26.3-35.5)
[2023-05-23 07:16] VITALS: BP 164/91; PULSE 83; RESP 19
[2023-05-23 07:58] VITALS: O2SAT 99
[2023-05-23] MEDS: FAMOTIDINE 20MG TAB PO SCH (08:32)
[2023-05-23] MEDS: ASPIRIN 81 MG EC TAB PO SCH (08:32)
[2023-05-23] MEDS: ENOXAPARIN SODIUM 40 MG/0.4 ML SYRINGE SQ SCH (08:35)
[2023-05-23 11:00] VITALS: BP 129/81; PULSE 82; RESP 16
[2023-05-23 13:57] LABS: BASOPHILS # (AUTO) 0.02 K/uL (0.00-0.20); BASOPHILS % (AUTO) 0.3 % (0.0-5.0); EOSINOPHILS % (AUTO) 1.4 % (0.0-8.0); HEMATOCRIT 35.3 % (36-48); IMMATURE GRANULOCYTE ABSOLUTE 0.02 K/uL (0-1); LYMPHOCYTES # (AUTO) 0.7 K/uL (1.0-4.8); LYMPHOCYTES % (AUTO) 8.9 % (21.0-51.0); MEAN CORPUSCULAR HEMOGLOBIN 26.8 pg (27.0-33.0); MEAN CORPUSCULAR VOLUME 83.6 fL (79-99); MONOCYTES # (AUTO) 0.4 K/uL (0.1-1.0); MONOCYTES % (AUTO) 5.6 % (3.0-13.0); NEUTROPHILS # (AUTO) 6.1 K/uL (1.8-7.7); NEUTROPHILS % (AUTO) 83.5 % (40.0-77.0); PLATELET COUNT (AUTO) 144 K/uL (130-400); RED BLOOD CELL COUNT(AUTO) 4.22 MIL/uL (4.00-5.50); RED CELL DISTRIBUTION WIDTH 14.7 % (11.0-15.5); WHITE BLOOD COUNT (AUTO) 7.3 K/uL (4.8-10.8)
[2023-05-23 16:00] VITALS: BP 125/75; PULSE 86; RESP 17
== END 2023-05-23 17:45 | disposition home or self-care (01) | DRG 65 ==
LOC: EDH 08:03 → OBSVTOIN 10:46 → EDHIP 10:46 → 3BH 18:40
PROVIDERS: ADMIT Internal Medicine; ATTEND Internal Medicine
DX: I63.89 Other cerebral infarction (principal); I48.92 Unspecified atrial flutter; I74.5 Embolism and thrombosis of iliac artery; I11.0 Hypertensive heart disease with heart failure; I50.9 Heart failure, unspecified; I25.5 Ischemic cardiomyopathy; E78.00 Pure hypercholesterolemia, unspecified; I25.10 Atherosclerotic heart disease of native coronary artery without angina pectoris; Z63.4 Disappearance and death of family member; Z79.899 Other long term (current) drug therapy; Z95.1 Presence of aortocoronary bypass graft; Z95.2 Presence of prosthetic heart valve; Z95.5 Presence of coronary angioplasty implant and graft
CPT/HCPCS: 36415; 70450; 70544; 70547; 70553; 71045; 71275; 75635; 80048; 80053; 80061; 81001; 82306; 82550; 82948; 83036; 83721; 83735; 83880; 84484; 85025; 85027; 85610; 85730; 92522; 92610; 93005; 93306; 93880; 93925; 94664; 97039; G0378; J0360; J1650; Q9967; A9575; G8980-CH; G8983-CH

== ENCOUNTER → 2024-01-04 | Outpatient (CLI) | payer OTHER ==
[~2024-01-04] MED LIST changes: +ASPI-1005 PO; -ASPI-891 PO; +ATOR40TA69 PO; +EZET10TA48 PO; +FAMO20TA8 PO; +FURO20TA6 PO; +IRON GLUCONATE PO; +LEVO-70 PO; +LOSA-418 PO; -LOSA50TA64 PO; -METO-408 PO; +METO50TA9 PO; -ROSU40TA21 PO
== END | disposition home or self-care (01) ==
LOC: RAH 10:10
PROVIDERS: ATTEND Family Medicine
DX: Z12.31 Encounter for screening mammogram for malignant neoplasm of breast (principal)
CPT/HCPCS: 77063; 77067

== ENCOUNTER 2024-04-15 16:01 | Emergency (ER) | payer OTHER ==
[~2024-04-15] VITALS: Ht 170.2 cm; Wt 65.3 kg
[2024-04-15 17:07] LABS: BASOPHILS # (AUTO) 0.06 K/uL (0.00-0.20); EOSINOPHILS # (AUTO) 0.05 K/uL (0.00-0.70); EOSINOPHILS % (AUTO) 0.8 % (0.0-8.0); HEMATOCRIT 40.2 % (36-48); IMMATURE GRANULOCYTE ABSOLUTE 0.01 K/uL (0-1); LYMPHOCYTES # (AUTO) 0.9 K/uL (1.0-4.8); LYMPHOCYTES % (AUTO) 15.3 % (21.0-51.0); MEAN CORPUSCULAR HEMOGLOBIN 28.4 pg (27.0-33.0); MEAN CORPUSCULAR HGB CONC 32.1 g/dL (32.0-36.0); MEAN CORPUSCULAR VOLUME 88.4 fL (79-99); MONOCYTES # (AUTO) 0.5 K/uL (0.1-1.0); MONOCYTES % (AUTO) 8.3 % (3.0-13.0); NEUTROPHILS # (AUTO) 4.5 K/uL (1.8-7.7); NEUTROPHILS % (AUTO) 74.4 % (40.0-77.0); PLATELET COUNT (AUTO) 202 K/uL (130-400); RED BLOOD CELL COUNT(AUTO) 4.55 MIL/uL (4.00-5.50); RED CELL DISTRIBUTION WIDTH 16.3 % (11.0-15.5)
[2024-04-15 17:14] LABS: POTASSIUM 3.8 mmol/L (3.5-5.1)
[2024-04-15 17:19] LABS: ALBUMIN 3.6 g/dL (3.5-5.0); BILIRUBIN,TOTAL 2.2 mg/dL (0.2-1.0); TOTAL PROTEIN, SERUM 6.7 g/dL (6.0-8.3)
[2024-04-15 18:54] VITALS: BP 136/94; PULSE 94; RESP 16; O2SAT 99
[2024-04-15] MEDS ORDERED: FURO20TA6 PO (19:00)
== END 2024-04-15 19:20 | disposition home or self-care (01) ==
LOC: EDH 16:01
DX: I11.0 Hypertensive heart disease with heart failure (principal); I50.9 Heart failure, unspecified; E78.00 Pure hypercholesterolemia, unspecified; Z79.01 Long term (current) use of anticoagulants; Z79.82 Long term (current) use of aspirin; Z86.73 Personal history of transient ischemic attack (TIA), and cerebral infarction without residual deficits; Z88.1 Allergy status to other antibiotic agents; Z95.1 Presence of aortocoronary bypass graft; Z95.2 Presence of prosthetic heart valve; Z95.5 Presence of coronary angioplasty implant and graft
CPT/HCPCS: 36415; 71045; 80053; 83880; 85025; 93005

== ENCOUNTER → 2024-05-06 | Outpatient (CLI) | payer OTHER ==
[~2024-05-06] MED LIST changes: -ASPI-1005 PO; -CHOL200074 PO; -FERR-82 PO; -HYDR12.54 PO; -IRON GLUCONATE PO; -LEVO-70 PO; -LOSA-418 PO; +SACU1TAB PO
[2024-05-06 15:28] LABS: CREATININE 1.5 mg/dL (0.5-1.0); POTASSIUM 3.6 mmol/L (3.5-5.1)
== END | disposition home or self-care (01) ==
LOC: LAB 11:53
PROVIDERS: ATTEND Internal Medicine Cardiovascular Disease
DX: I10 Essential (primary) hypertension (principal)
CPT/HCPCS: 36415; 80048

== ENCOUNTER → 2024-06-04 | Outpatient (CLI) | payer OTHER | END | disposition home or self-care (01) | LOC: SHCH 13:33 | PROVIDERS: ATTEND Internal Medicine Cardiovascular Disease | DX: I08.3 Combined rheumatic disorders of mitral, aortic and tricuspid valves (principal); I11.0 Hypertensive heart disease with heart failure; I50.20 Unspecified systolic (congestive) heart failure; I48.91 Unspecified atrial fibrillation; E11.9 Type 2 diabetes mellitus without complications; E78.5 Hyperlipidemia, unspecified; Z95.1 Presence of aortocoronary bypass graft | CPT/HCPCS: 93306 ==

== ENCOUNTER 2024-06-18 09:22 | Inpatient (IN) | payer OTHER ==
[2024-06-18] VITALS (8 sets, daily range): BP systolic 109–125; BP diastolic 74–98; PULSE 104–139; RESP 17–20; TEMP 97.8–98.5; O2SAT 100
[~2024-06-18] VITALS: Ht 170.2 cm; Wt 65.8 kg
[2024-06-18 09:39] LABS: BASOPHILS # (AUTO) 0.05 K/uL (0.00-0.20); BASOPHILS % (AUTO) 0.7 % (0.0-5.0); EOSINOPHILS # (AUTO) 0.12 K/uL (0.00-0.70); EOSINOPHILS % (AUTO) 1.7 % (0.0-8.0); HEMATOCRIT 38.3 % (36-48); IMMATURE GRANULOCYTE ABSOLUTE 0.03 K/uL (0-1); LYMPHOCYTES # (AUTO) 0.8 K/uL (1.0-4.8); MEAN CORPUSCULAR HEMOGLOBIN 27.5 pg (27.0-33.0); MEAN CORPUSCULAR HGB CONC 32.1 g/dL (32.0-36.0); MEAN CORPUSCULAR VOLUME 85.7 fL (79-99); MONOCYTES # (AUTO) 0.5 K/uL (0.1-1.0); MONOCYTES % (AUTO) 7.2 % (3.0-13.0); NEUTROPHILS # (AUTO) 5.7 K/uL (1.8-7.7); PLATELET COUNT (AUTO) 263 K/uL (130-400); RED BLOOD CELL COUNT(AUTO) 4.47 MIL/uL (4.00-5.50); RED CELL DISTRIBUTION WIDTH 15.4 % (11.0-15.5); WHITE BLOOD COUNT (AUTO) 7.3 K/uL (4.8-10.8)
[2024-06-18] MEDS: metoPROLOL tartRATE 1 MG/ML 5ML VIAL IV ONE (09:41)
[2024-06-18 09:47] LABS: CREATININE 1.9 mg/dL (0.5-1.0); POTASSIUM 4.1 mmol/L (3.5-5.1)
[2024-06-18 10:08] LABS: B-TYPE NATRIURETIC PEPTIDE > 5000 pg/mL (0-100)
[2024-06-18] MEDS ORDERED: MAGN400T7 PO (10:26)
[2024-06-18] MEDS ORDERED: AEC81 PO (10:26)
[2024-06-18] MEDS: FAMOTIDINE 20MG TAB PO SCH (10:46)
[2024-06-18 10:56] LABS: APPEARANCE,URINE CLEAR (CLEAR); BILIRUBIN,URINE NEGATIVE (NEGATIVE); COLOR,URINE YELLOW (YELLOW); GLUCOSE, URINE (UA) NEGATIVE (NEGATIVE); KETONES,URINE NEGATIVE (NEGATIVE); LEUKOCYTE ESTERASE ,URINE NEGATIVE Leu/uL (NEGATIVE); NITRATE,URINE NEGATIVE (NEGATIVE); OCCULT BLOOD,URINE MODERATE (NEGATIVE); PH,URINE 5.5 (5.0-8.0); PROTEIN,URINE 100 mg/dL (NEGATIVE); UROBILINOGEN,URINE 3 mg/dL (0.2-1.0)
[2024-06-18 10:57] LABS: ADD UA MICROSCOPIC YES
[2024-06-18] MEDS ORDERED: cloNIDine HCL 0.1 MG TABLET PO PRN (11:00)
[2024-06-18] MEDS ORDERED: acetaMINOPHEN 325 MG TAB PO PRN (11:00)
[2024-06-18] MEDS ORDERED: acetaMINOPHEN 650 MG SUPPOSITORY RC PRN (11:00)
[2024-06-18] MEDS ORDERED: LACTULOSE 20 GM/30 ML UDCUP PO PRN (11:00)
[2024-06-18] MEDS ORDERED: traMADol HCL 50 MG TABLET PO PRN (11:00)
[2024-06-18 11:05] LABS: BACTERIA,URINE RARE /HPF (None Seen); MUCUS,URINE RARE LPF (None Seen); SQUAMOUS EPITHELIAL CELL,UR FEW /HPF (0-2); WBC,URINE 0-1 /HPF (0-1)
[2024-06-18] MEDS: PHARMACY COMMUNICATION MISC SCH (17:00)
[2024-06-18] MEDS: LAbetaLOL 20MG SYG IV PRN (17:23)
[2024-06-18] MEDS ORDERED: LAbetaLOL 20MG SYG IV PRN (17:30)
[2024-06-18] MEDS: atorVAStatin 40 MG TABLET PO SCH (21:00)
[2024-06-18] MEDS: ondanSETRON 4MG INJ IVP PRN (21:28)
[2024-06-18] MEDS: MAGNESIUM 2GM PREMIX 50ML 50 ML IV SCH (21:29)
[2024-06-18] MEDS ORDERED: AMIOdarone 900MG VIAL 150 MG in DEXTROSE 5%-WATER 100 ML IV SCH (21:30)
[2024-06-18] MEDS: AMIOdarone 150MG VIAL 150 MG in DEXTROSE 5%-WATER 100 ML IV SCH (21:31)
[2024-06-18] MEDS: metOPROLol sucCINATE 50 MG TAB.SR.24H PO SCH (23:06)
[2024-06-18] MEDS: APIXaban 5 MG TABLET PO SCH (23:07)
[2024-06-19] VITALS (7 sets, daily range): BP systolic 113–123; BP diastolic 66–94; PULSE 65–118; RESP 15–19; TEMP 97.7–98.1; O2SAT 97–100
[2024-06-19 03:45] LABS: BASOPHILS # (AUTO) 0.03 K/uL (0.00-0.20); BASOPHILS % (AUTO) 0.3 % (0.0-5.0); HEMATOCRIT 38.8 % (36-48); IMMATURE GRANULOCYTE ABSOLUTE 0.06 K/uL (0-1); LYMPHOCYTES # (AUTO) 1.1 K/uL (1.0-4.8); LYMPHOCYTES % (AUTO) 12.2 % (21.0-51.0); MEAN CORPUSCULAR HEMOGLOBIN 27.7 pg (27.0-33.0); MEAN CORPUSCULAR VOLUME 86.8 fL (79-99); MONOCYTES # (AUTO) 0.7 K/uL (0.1-1.0); MONOCYTES % (AUTO) 7.2 % (3.0-13.0); NEUTROPHILS # (AUTO) 7.5 K/uL (1.8-7.7); NEUTROPHILS % (AUTO) 79.7 % (40.0-77.0); PLATELET COUNT (AUTO) 285 K/uL (130-400); RED BLOOD CELL COUNT(AUTO) 4.47 MIL/uL (4.00-5.50); RED CELL DISTRIBUTION WIDTH 15.5 % (11.0-15.5); WHITE BLOOD COUNT (AUTO) 9.4 K/uL (4.8-10.8)
[2024-06-19 04:19] LABS: CREATININE 2.2 mg/dL (0.5-1.0); MAGNESIUM 2.7 mg/dL (1.80-2.40); PHOSPHORUS 5.1 mg/dL (2.5-4.9); POTASSIUM 5.2 mmol/L (3.5-5.1); THYROID STIMULATING HORMONE 2.21 uIU/mL (0.36-3.74)
[2024-06-19 04:23] LABS: B-TYPE NATRIURETIC PEPTIDE > 5000 pg/mL (0-100)
[2024-06-19] MEDS: ASPIRIN 81 MG EC TAB PO SCH (08:55)
[2024-06-19] MEDS: EZETIMIBE 10 MG TAB PO SCH (08:55)
[2024-06-19] MEDS: furoSEMIDE 20 MG TABLET PO SCH (08:55)
[2024-06-19] MEDS: MAGNESIUM OXIDE 400 MG TABLET PO SCH (08:58)
[2024-06-19] MEDS: metOPROLol sucCINATE 25 MG TAB.SR.24H PO ONE (12:37)
[2024-06-19] MEDS: furoSEMIDE 20MG VIAL IV SCH (16:45)
[2024-06-19] MEDS: THIAMINE HCL 100 MG/ML 2ML VIAL IVP SCH (16:45)
[2024-06-19 17:44] LABS: CREATININE 2.3 mg/dL (0.5-1.0); POTASSIUM 4.9 mmol/L (3.5-5.1)
[2024-06-20 00:05] VITALS: BP 104/65; PULSE 70; RESP 17; TEMP 98.1
[2024-06-20 03:48] LABS: BASOPHILS # (AUTO) 0.08 K/uL (0.00-0.20); EOSINOPHILS # (AUTO) 0.22 K/uL (0.00-0.70); EOSINOPHILS % (AUTO) 2.8 % (0.0-8.0); HEMATOCRIT 39.1 % (36-48); IMMATURE GRANULOCYTE ABSOLUTE 0.03 K/uL (0-1); LYMPHOCYTES # (AUTO) 1.3 K/uL (1.0-4.8); LYMPHOCYTES % (AUTO) 16.1 % (21.0-51.0); MEAN CORPUSCULAR HEMOGLOBIN 27.5 pg (27.0-33.0); MEAN CORPUSCULAR VOLUME 85.9 fL (79-99); MONOCYTES # (AUTO) 0.6 K/uL (0.1-1.0); MONOCYTES % (AUTO) 7.7 % (3.0-13.0); NEUTROPHILS # (AUTO) 5.7 K/uL (1.8-7.7); PLATELET COUNT (AUTO) 286 K/uL (130-400); RED BLOOD CELL COUNT(AUTO) 4.55 MIL/uL (4.00-5.50); RED CELL DISTRIBUTION WIDTH 15.4 % (11.0-15.5)
[2024-06-20 03:50] VITALS: BP 117/74; PULSE 72; RESP 19; TEMP 98.1
[2024-06-20 04:15] LABS: ALBUMIN 2.4 g/dL (3.5-5.0); BILIRUBIN,TOTAL 1.1 mg/dL (0.2-1.0); CREATININE 2.3 mg/dL (0.5-1.0); MAGNESIUM 2.2 mg/dL (1.80-2.40); PHOSPHORUS 4.6 mg/dL (2.5-4.9); POTASSIUM 4.3 mmol/L (3.5-5.1); THYROID STIMULATING HORMONE 3.91 uIU/mL (0.36-3.74); TOTAL PROTEIN, SERUM 5.6 g/dL (6.0-8.3)
[2024-06-20 07:00] VITALS: O2SAT 100
[2024-06-20] MEDS ORDERED: HYDR-3420 PO (07:25)
[2024-06-20] MEDS ORDERED: Isosorbide Mono 30MG Sr Tab PO (07:25)
[2024-06-20 08:30] VITALS: BP 118/76; PULSE 84; RESP 18; TEMP 97.6
[2024-06-20] MEDS: metOPROLol sucCINATE 25 MG TAB.SR.24H PO SCH (09:27)
[2024-06-20] MEDS: hydrALAZine HCL 10 MG TABLET PO SCH (09:28)
[2024-06-20] MEDS: ISOSORBIDE MONO 30MG SR TAB PO SCH (09:28)
[2024-06-20] MEDS: Vitamin B Complex/Vit C/Folic Acid PO SCH (09:28)
== END 2024-06-20 12:20 | disposition home or self-care (01) | DRG 280 ==
LOC: EDH 09:22 → EDHIP 10:31 → 2DH 12:49
PROVIDERS: ADMIT Internal Medicine Critical Care Medicine; ATTEND Internal Medicine Critical Care Medicine
DX: I48.19 Other persistent atrial fibrillation (principal); I50.43 Acute on chronic combined systolic (congestive) and diastolic (congestive) heart failure; I21.A1 Myocardial infarction type 2; I13.0 Hypertensive heart and chronic kidney disease with heart failure and stage 1 through stage 4 chronic kidney disease, or unspecified chronic kidney disease; I25.810 Atherosclerosis of coronary artery bypass graft(s) without angina pectoris; J81.1 Chronic pulmonary edema; N17.9 Acute kidney failure, unspecified; I25.5 Ischemic cardiomyopathy; I25.10 Atherosclerotic heart disease of native coronary artery without angina pectoris; E78.00 Pure hypercholesterolemia, unspecified; N18.9 Chronic kidney disease, unspecified; K59.09 Other constipation; I73.9 Peripheral vascular disease, unspecified; D63.1 Anemia in chronic kidney disease; I44.0 Atrioventricular block, first degree; E87.5 Hyperkalemia; I70.1 Atherosclerosis of renal artery; Z79.82 Long term (current) use of aspirin; Z79.899 Other long term (current) drug therapy; Z86.73 Personal history of transient ischemic attack (TIA), and cerebral infarction without residual deficits; Z95.5 Presence of coronary angioplasty implant and graft; I25.2 Old myocardial infarction; Z79.01 Long term (current) use of anticoagulants
CPT/HCPCS: 36415; 71045; 76376; 76770; 80048; 80053; 81001; 82550; 83735; 83880; 84100; 84132; 84443; 84484; 85025; 86038; 86160; 86215; 86235; 93005; 93306; 93356; G0378; J0282; J1940; J2405; J3411; J3475; J3490; J7060

== ENCOUNTER → 2024-06-25 | Outpatient (CLI) | payer OTHER ==
[~2024-06-25] MED LIST changes: +AEC81 PO; +HYDR-3420 PO; +Isosorbide Mono 30MG Sr Tab PO; +MAGN400T7 PO; -SACU1TAB PO
[2024-06-25 16:38] LABS: CREATININE 1.4 mg/dL (0.5-1.0); POTASSIUM 3.2 mmol/L (3.5-5.1)
== END | disposition home or self-care (01) ==
LOC: LAB 12:52
PROVIDERS: ATTEND Internal Medicine Cardiovascular Disease
DX: I10 Essential (primary) hypertension (principal)
CPT/HCPCS: 36415; 80048; 83880